=== PATIENT | female | born 1955 | race Two or more races ===

== ENCOUNTER 2021-12-12 17:43 | Emergency (ER) | payer MEDICARE, MEDICAID ==
[~2021-12-12] VITALS: Ht 167.6 cm; Wt 115.7 kg
[2021-12-12 19:26] LABS: Urine Bacteria FEW /hpf (None Seen); Urine Blood Negative /uL (Negative); Urine Hyaline Cast MOD /lpf (0 - 2); Urine Mucus FEW (None Seen); Urine Specific Gravity 1.019 (1.001-1.035); Urine WBC 188 /hpf (0 - 5)
[2021-12-12] MEDS ORDERED: TRAM-297 PO (19:38)
[2021-12-12] MEDS ORDERED: NITR-87 PO (19:38)
[2021-12-12] MEDS ORDERED: traMADol HCL 50 MG TAB PO ONE (19:45)
[2021-12-12] MEDS ORDERED: NITROFURANTOIN 100 mg CAP PO ONE (19:45)
[2021-12-12 21:05] VITALS: BP 140/68
== END 2021-12-12 20:49 | disposition home or self-care (01) ==
LOC: ER 17:43
DX: N39.0 Urinary tract infection, site not specified (principal); M79.18 Myalgia, other site
CPT/HCPCS: 81001